=== PATIENT | female | born 1940 | race Caucasian/White ===

== ENCOUNTER → 2019-08-20 08:55 | Outpatient (CLI) | payer MEDICARE, OTHER ==
[~2019-08-20 08:55] MED LIST: ACETAMINOPHEN500 M1 PO; BAYER CHEWABLE81 MG PO; BYSTOLIC5 MG PO; GABAPENTIN100 MG PO; LINZESS290 MCG PO; PLAVIX75 MG PO; ULTRAM50 MG PO
[2019-09-05 11:06] VITALS: BMI 27.5
== END | disposition home or self-care (01) ==
LOC: D.HCCARDIO 08:55
PROVIDERS: ATTEND Internal Medicine Cardiovascular Disease
DX: I25.10 Atherosclerotic heart disease of native coronary artery without angina pectoris (principal); I10 Essential (primary) hypertension; R06.00 Dyspnea, unspecified

== ENCOUNTER 2019-09-05 09:38 | Outpatient (CLI) | payer MEDICARE, OTHER ==
[~2019-09-05] VITALS: Ht 165.1 cm; Wt 75.0 kg
--- NOTE | ~2019-09-05 | HEMODYNAMI ---
PATIENT:GIO AMBRIZ MEDICAL RECORD: [id number] : 42 LOCATION:[facility] ADMISSION DATE: 09/05/19 Generatedon:09/05/201914:11 Patient name: GIO AMBRIZ Patient #: [id number] SN: [id number] : 1940 Date of study: 09/05/2019 Page: Of Hemodynamic Procedure Report Patient Data Patient Demographics Procedure consent was obtained First Name: GIO Gender: Female Last Name: PB : 1940 Patient #: [id number] Age: 79 year(s) Race: SSN: [id number] Additional ID: [id number] Contact details [address]: [address] [place] [address] State: [place] City: [place] Zip code: [address] Admission Admission Data Admission Date: 09/05/2019 Admission Time: 9:38 Arrival Date: 09/05/2019 Arrival Time: 13:00 Admit Source: Other Insurance Payor: Medicare Height (in.): 65 BSA: 1.82 (m2) Height (cm.): 165.1 BMI: 27.51 (kg/m2) Weight (lbs.): 165.35 Weight (kg.): 75 Lab Results Lab Result Date: 09/05/2019 Lab Result Time: 0:00 Biochemistry Name Units Result Min Max BUN mg/dl 14 --(--*-)-- 7 18 Creatinine mg/dl 0.8 --(-*--)-- 0.6 1.3 eGFR ml/min 73.33974 *-(----)-- 90 120 NONAFRICAN CBC Name Units Result Min Max Hemoglobin g/dl 14.3 --(*---)-- 13.5 17.5 Procedure Procedure Types Cath Procedure Diagnostic Procedure LHC LH w/Coronaries Sedation Charges Moderate Sedation up to 15 minutes PCI Procedure Coronary Stent Coronary Stent Initial Procedure Description Procedure Date Procedure Date: 09/05/2019 Procedure Start Time: 13:40 Procedure End Time: 14:04 Procedure Staff Name Function Marvin Nova MD Performing Physician Luz Garcia RT Monitor Paulina Shah RT Scrub Vi Schneider RN Nurse Indication An abnormal nuclear perfusion study Procedure Data Cath Procedure Fluoroscopy Diagnostic fluoroscopy Total fluoroscopy Time: 3.3 time: 3.3 min min Diagnostic fluoroscopy Total fluoroscopy dose: 373 dose: 373 mGy mGy Contrast Material Contrast Material Type Amount (ml) Isovue 300 92 Entry Location Entry Primary Successful Side Size Upsize Upsize Entry Closure Succes sful Closure Location (Fr) 1 (Fr) 2 (Fr) Remarks Device Remarks Femoral Right 5 Fr 6 Fr Exoseal artery Short Estimated blood loss: 10 ml Diagnostic catheters Device Type Used For End Catheter Placement MULTIPACK JL 4.0 5Fr Procedure catheter MULTIPACK 3DRC 5Fr Procedure catheter MULTIPACK Pigtail 5 Fr Ventriculography catheter Procedure Complications No complications Procedure Medications Medication Administration Route Dosage 0.9% NaCl I.V. 100 ml/hr Oxygen etCO2 Nasal cannula 2 l/min Lidocaine 2% added to field 20 Heparin Flush Bag added to field 2 bags (1000units/500ml NS) Versed I.V. 2 mg Fentanyl I.V. 50 mcg Fentanyl I.V. 50 mcg Heparin Bolus I.V. 7500 units Plavix P.O. 600 mg Hemodynamics Rest BSA: 1.82 (m2) HGB: 14.3 (g/dl) O2 Consumption: Estimated: 164.56 (ml/min) O2 Co nsumption indexed: Estimated:90.42 (ml/min/m) Heart Rate: 70 (bpm) Pressure Samples Time Site Value (mmHg) Purpose Heart Use Rate(bpm) 13:43 AO 158/87(95) Snapshot 71 13:48 LV 159/1,10 Snapshot 73 13:48 LV 171/0,9 Snapshot 73 13:48 AO 161/66(108) Pullback 70 13:48 LV 162/0,17 Pullback 70 Gradients Valve Time Site 1 Site 2 Mean SEP/DFP Peak To Heart Use (mmHg) (sec/min) Peak Rate (mmHg) (bpm) Aortic 13:48 LV AO 8 15 1 70 162/0,17 161/66(108) Calculations Valve P-P Mean Valve Index Valve Source Name Gradient Area Flow (cm2) Aortic 1 8 1 8 Snapshots Pre Cath Intra NCS Post Cath Vital Signs Time Heart Resp SPO2 etCO2 NIBP (mmHg) Rhythm Pain Sedation Rate (ipm) (%) (mmHg) Status Level (bpm) 13:27:03 67 13 98 30.1 Measuring NSR 0 (11) 10(A) , No pain 13:27:28 66 13 100 30.9 165/82(116) NSR 0 (11) 10(A) , No pain 13:31:50 67 12 97 31.6 162/78(100) NSR 0 (11) 10(A) , No pain 13:36:14 69 11 98 32.4 154/75(105) NSR 0 (11) 10(A) , No pain 13:40:36 69 15 98 17.3 154/70(113) NSR 0 (11) 9(A) , No pain 13:44:50 71 16 98 11 142/70(94) NSR 0 (11) 9(A) , No pain 13:49:08 69 18 96 25.6 136/66(100) NSR 0 (11) 9(A) , No pain 13:53:24 71 19 96 27.1 138/67(113) NSR 0 (11) 9(A) , No pain 13:57:40 70 18 96 27.8 140/71(114) NSR 0 (11) 9(A) , No pain 14:02:40 73 10 96 21 Measuring NSR 0 (11) 9(A) , No pain 14:02:48 72 12 97 27.1 169/84(125) NSR 0 (11) 10(A) , No pain Medications Time Medication Route Dose Verified Delivered Reason Notes Effectiveness by by 13:26:31 0.9% NaCl I.V. 100 Marvin Vi used for ml/hr Avtar Schneider tree planter 13:26:37 Oxygen etCO2 2 Marvin Vi used for Nasal l/min Avtar Schneider procedure cannula RN 13:26:43 Lidocaine 2% added 20ml Marvin Marvin for local to vial Avtar Nova MD anesthetic field 13:26:47 Heparin Flush added 2 Marvin Marvin used for Bag to bags Avtar Nova MD procedure (1000units/500ml field NS) 13:34:40 Versed I.V. 2 mg Marvin Vi for sedation Avtar Schneider RN 13:34:45 Fentanyl I.V. 50 Marvin Vi for sedation mcg Avtar Schneider RN 13:39:25 Fentanyl I.V. 50 Marvin Vi for sedation mcg Avtar Schneider RN 13:52:21 Heparin Bolus I.V. 7500 Marvin Vi for verif ied units Avtar Schneider anticoagulation with Dr. LINDA Nova 13:53:32 Plavix P.O. 600 Mravin Vi for mg Avtar Schneidre antiplatelet RN therapy Procedure Log Time Note 13:10:29 Vi Schneider RN sent for patient. Start room use. 13:14:48 Diagnostic Cath Status : Elective 13:15:42 Indication : An abnormal nuclear perfusion study 13:16:02 Informed consent obtained and on chart 13:17:02 Arrival Date: 09/05/2019 1:00:00 PM 13:17:09 Insurance Payor : Medicare 13:17:11 Admit Source: Other 13:17:33 Patient Height : 65 inches 13:17:36 Patient Weight : 165.35 lbs 13:18:02 Lab Result : BUN 14 mg/dl 13:18:02 Lab Result : eGFR NONAFRICAN 73.76222 ml/min 13:18:02 Lab Result : Creatinine 0.8 mg/dl 13:18:02 Lab Result : Hemoglobin 14.3 g/dl 13:18:30 2) 60-89 Mildly reduced kidney function, and other findings (as for stage 1) point to kidney disease. 13:19:12 Maximum allowable contrast dose (3.7 X eGFR X 0.75)202 ml. 13:22:26 ACC Patient presents with Stable Angina CCS Anginal Class 2--Slight limitation of ordinary activity. 13:22:40 Time tracking: Regular hours (M-F 7:00 - 5:00) 13:22:44 Plan of Care:Hemodynamics will remain stable., Cardiac rhythm will remain stable., Comfort level will be maintained., Respiratory function will remain adequate., Patient/ family verbilizes understanding of procedure., Procedure tolerated without complication., Recovers from procedure without complications.. 13:22:49 Patient received from Pre/Post Procedure Room to [facility] 2 Alert and oriented. Tansferred to table in Supine position. 13:22:50 Warm blankets applied, and sumit hugger turned on for patient comfort. 13:22:50 Correct patient and procedure confirmed by team. 13:22:51 ECG and BP/O2 sat monitors applied to patient. 13:25:14 Vital chart was started 13:25:16 Baseline sample Acquired. 13:25:19 Rhythm: sinus rhythm 13:25:21 Full Disclosure recording started 13:25:25 H&P Date Dictated: 09/05/2019 Within 30 days and on chart., H&P Addendum completed by physician on day of procedure. (MUST COMPLETE FOR ALL OUTPATIENTS). 13:25:26 Pre-procedure instructions explained to patient. 13:25:26 Pre-op teaching completed and patient verbalized understanding. 13:25:29 Family in patients room. 13:25:31 Patient NPO since Midnight. 13:25:32 Is the patient allergic to Iodine/contrast media? No. 13:25:33 Was the patient premedicated? No 13:25:35 Is patient on blood thinner?No 13:25:36 Patient diabetic? No. 13:25:40 Previous problem with sedation/anesthesia? No ? 13:25:41 Snore? Yes 13:25:42 Sleep apnea? No 13:25:44 Deviated septum? No 13:25:44 Opens mouth fully? Yes 13:25:45 Sticks out tongue? Yes 13:25:46 Airway obstruction? No ? 13:25:49 Dentures? No ? 13:26:29 Patient pain scale 0/10 ?. 13:26:31 0.9% NaCl 100 ml/hr I.V. was administered by Vi Schneider RN; used for procedure; Verbal order read back and verified. 13:26:37 Oxygen 2 l/min etCO2 Nasal cannula was administered by Vi Schneider RN; used for procedure; Verbal order read back and verified. 13:26:43 Lidocaine 2% 20ml vial added to field was administered by Marvin Nova MD; for local anesthetic; Verbal order read back and verified. 13:26:46 IV patent on arrival in right antecubital with 0.9% NaCl at [facility]. 13:26:47 Heparin Flush Bag (1000units/500ml NS) 2 bags added to field was administered by Marvin Nova MD; used for procedure; Verbal order read back and verified. 13:26:49 Lab results completed and on chart. 13:26:53 Risk of Mortality: .2 13::58 Risk of blood transfusion: .1 13:27:02 Risk of LYDIA: 1.1 13:27:06 Right groin area was prepped with chlora-prep and draped in sterile fashion 13:27:07 Alarms reviewed by R. N. 13:27:08 Sharps counted by scrub and verified by R.N. 13:28:04 Physician arrived 13::05 --------ALL STOP TIME OUT------ 13::06 Final Timeout: patient, procedure, and site verified with staff and physician. All members of the team are in agreement. 13:28:08 Right groin site verified by team. 13:28:12 Fire Safety Assessment: A--An alcohol-based skin anteseptic being used preoperatively., C--Open oxygen or nitrous oxide is being used., D--An ESU, laser, or fiber-optic light is being used. 13:28:27 Physical assessment completed. ASA score P 2 - A patient with mild systemic disease as per Marvin Nova MD. 13:31:52 Sedation plan: IV Moderate Sedation Medication:Versed, Fentanyl 13:31:57 Use device set Femoral Dx 13:31:58 ACIST Syringe (53427) opened to sterile field. 13:31:59 Bag Decanter (2002) opened to sterile field. 13:32:00 Medline Cath Pack ([id number]) opened to sterile field. 13:32:02 ACIST Hand Control (40921) opened to sterile field. 13:32:03 ACIST Manifold (83612) opened to sterile field. 13:32:04 DIAGNOSTIC Multipack 5Fr catheter set (JH8998) opened to sterile field. 13:32:06 Tegaderm 4 x 4 (1626W) opened to sterile field. 13:32:09 SHEATH 5FR [place] (OON685) opened to sterile field. 13:32:10 EMERALD Guide Wire (103-986) opened to sterile field. 13:34:40 Versed 2 mg I.V. was administered by Vi Schneider RN; for sedation; Verbal order read back and verified. 13:34:45 Fentanyl 50 mcg I.V. was administered by Vi Schneider RN; for sedation; Verbal order read back and verified. 13:36:57 Zero performed for pressure channel P1 13:36:59 Zero performed for pressure channel P1 13:37:13 Procedure started. 13:39:25 Fentanyl 50 mcg I.V. was administered by Vi Schneider RN; for sedation; Verbal order read back and verified. 13:40:08 Local anesthetic to right femoral artery with Lidocaine 2% by Marvin Nova MD.INITIAL ACCESS ONLY 13:40:18 A 5 Fr sheath was inserted into the Right Femoral artery 13:43:02 A MULTIPACK JL 4.0 5Fr catheter was advanced over the wire and used for Procedure. 13:43:41 LCA angiography performed. 13:44:29 Catheter removed. 13:44:36 A MULTIPACK 3DRC 5Fr catheter was advanced over the wire and used for Procedure. 13:44:39 RCA angiography performed. 13:45:50 ACCDominant side:Left 13:45:53 Catheter removed. 13:46:43 A MULTIPACK Pigtail 5 Fr catheter was advanced over the wire and used for Ventriculography. 13:46:51 LV angiography performed. 13:48:35 EF : 50 % 13:49:05 GUIDE 6FR XBLAD 3.5 catheter ([id number]) opened to sterile field. 13:49:06 INFLATOR Merit BasixCompak (BJ4059) opened to sterile field. 13:49:06 BMW 300cm Magnetic [place] 2 J wire ([id number]) opened to sterile field. 13:49:07 SHEATH 6FR [place] (WQL293) opened to sterile field. 13:49:07 TUBING High Pressure Extension Tubing (Avtar) ([id number]) opened to sterile field. 13:49:12 Catheter removed. 13:49:19 Mortality risk .2%. 13:49:20 Proceeding to intervention. 13:49:29 Sheath upsized to a 6 Fr Short. 13:50:07 Pre PCI Site: [facility] mLAD has 90% stenosis. 13:50:20 6 Fr XBLAD3.5 guide catheter was inserted over the wire 13:50:28 BMW wire advanced. 13:52:21 Heparin Bolus 7500 units I.V. was administered by Vi Schneider RN; for anticoagulation; verified with Dr. Nova Verbal order read back and verified. 13:53:32 Plavix 600 mg P.O. was administered by Vi Schneider RN; for antiplatelet therapy; Verbal order read back and verified. 14:00:03 Place stent Inflation Number: 1 A INTEGRITY RX 3.0 x 22 stent ([id number]) was prepped and advanced across the Prox LAD 90. The stent was deployed at 12 MAYA for 0:20 (min:sec) . 14:00:15 EXOSEAL 6Fr (EX600) opened to sterile field. 14:00:58 Wire removed. 14:00:59 Guide catheter removed. 14:01:11 Sheath removed intact; hemostasis achieved with Exoseal to the Right Femoral artery. 14:01:15 Procedure ended.(Physican Out) 14:01:59 Fluoroscopy time 03.30 minutes. 14:02:04 Fluoroscopy dose: 373 mGy 14:02:04 Flurop Dose total: 373 14:02:10 Dose Area Product 38.9 mGy/cm. 14:02:17 Contrast amount:Isovue 300 92ml. 14:02:19 Maximum allowable dose exceeded? No. 14:02:21 Sharps counted by scrub and verified by R.N. 14:02:32 Post right femoral artery:stable 14:02:35 Post Procedure Pulses reassessed and unchanged 14:02:38 Post-procedure physical assessment completed. ASA score P 2 - A patient with mild systemic disease as per Marvin Nova MD. 14:02:52 Post procedure rhythm: sinus rhythm 14:02:55 Estimated blood loss: 10 ml 14:02:56 Post procedure instruction explained to patient.Patient verbalizes understanding. 14:03:15 Procedure type changed to Cath procedure, Diagnostic procedure, LHC, [facility] w/Coronaries, Sedation Charges, Moderate Sedation up to 15 minutes, PCI procedure, Coronary Stent, Coronary Stent Initial 14:03:22 Procedure and supply charges have been captured, reviewed, submitted and are correct. 14:03:47 Procedure Complication : No complications 14:03:51 Vital chart was stopped 14:03:56 [facility] Findings: MVD- PCI performed (see procedure note) 14:03:58 Operative report dictated upon procedure completion. 14:03:59 See physician's report for complete and final results. 14:04:00 Report given to Pre/Post Procedure Room. 14:04:05 Patient transfered to Pre/Post Procedure Room with Stretcher. 14:04:08 Procedure ended. 14:04:08 Full Disclosure recording stopped 14:04:19 End room use (Document Last) 14:04:37 ACC-PCI Only Patient was given prescriptions, or instructed by Marvin Nova MD to start/continue the following medications upon discharge: Plavix 14:08:10 ACT drawn and resulted at 400 seconds. (normal therapeutic range 180-240 seconds). 14:08:32 FEMSTOP Gold ([id number]) opened to sterile field. 14:10:18 Femstop placed over the right femoral artery at 120 mmHg. Hemostasis achieved. Intervention Summary Intervention Notes Time ActionType Lesion and Equipment Action# Pressure Duration Attributes Used 14:00:03 Place stent Prox LAD INTEGRITY RX 1 12 00:20 3.0 x 22 stent ([id number]) Device Usage Item Name Manufacture Quantity Catalog Hospital Part Current Minimal Lot# / Number Charge Number Stock Stock Serial# Code ACIST Acist 1 62027 316213 513366 374693 20 Syringe Medical (01715) Systems Inc Bag Decanter Microtek 1 2001S 707347 93813 735591 5 (2001S) Medical Inc. Medline Cath Medline 1 [id number] 532508 42471 014069 5 Pack ([id number]) ACIST Hand Acist 1 39913 458687 924079 594716 5 Control Medical (85910) Systems Inc ACIST Acist 1 62940 925749 502011 530037 5 Manifold Medical (07254) Systems Inc DIAGNOSTIC Cardinal 1 TM8487 235230 20981 345813 30 Multipack Health 5Fr catheter set (QE1814) Tegaderm 4 x 3M 1 1626W 623684 572145 738925 5 4 (1626W) SHEATH 5FR Terumo 1 NIY722 488068 191283 933228 5 [place] (RSK204) EMERALD Cardinal 1 502-455 708320 124344 927550 5 Guide Wire Health (502455) MULTIPACK JL Cardinal 1 133871 5 4.0 5Fr Health catheter MULTIPACK Cardinal 1 947376 5 3DRC 5Fr Health catheter MULTIPACK Cardinal 1 829810 5 Pigtail 5 Fr Health catheter GUIDE 6FR Cardinal 1 [id number] 746091 459710 024501 10 XBLAD 3.5 Health catheter (08530423) INFLATOR Merit 1 RI3591 302677 319760 568689 15 Merit Medical BasixCompak (PS6393) BMW 300cm Adair 1 [id number] 728989 407296 401005 5 Magnetic [place] 2 Vascular J wire ([id number]) SHEATH 6FR Terumo 1 PNT582 669539 071265 898146 40 [place] (OYC412) TUBING High Merit 1 [id number] 152770 39933 582094 10 Pressure Medical Extension Tubing (Avtar) (JK4586I) INTEGRITY RX Medtronic 1 [id number] 752716 806531 392630 5 [id number] 3.0 x 22 stent ([id number]) EXOSEAL 6Fr Cardinal 1 EX600 434538 895952 928580 10 (EX600) Health FEMSTOP Gold [facility] 1 O50180 948313 351746 647467 5 ([id number]) Signature Audit [place] Stage Time Signature Unsigned Intra-Procedure 09/05/2019 Luz Garcia 2:06:03 PM RT(R) Intra-Procedure 09/05/2019 Vi Schneider 2:06:38 PM RN Intra-Procedure 09/05/2019 Marvin Nova MD 2:11:06 PM Signatures Performing Physician : Signature : Marvin Nova MD Date : Time : Monitor : Luz Garcia Signature : RT Date : Time : Nurse : Vi Schneider RN Signature : Date : Time : [place] [id number] [place] [address]
[2019-09-05] MEDS ORDERED: GABAPENTIN100 MG PO (10:42)
[2019-09-05] MEDS ORDERED: ACETAMINOPHEN500 M1 PO (10:42)
[2019-09-05] MEDS ORDERED: BYSTOLIC5 MG PO (10:42)
[2019-09-05] MEDS ORDERED: LINZESS290 MCG PO (10:43)
[2019-09-05] MEDS ORDERED: ULTRAM50 MG PO (10:43)
[2019-09-05] MEDS ORDERED: BAYER CHEWABLE81 MG PO (10:43)
[2019-09-05 11:06] VITALS: BP 155/68; Ht 165.1 cm; Wt 75.0 kg
[2019-09-05 11:11] LABS: BASOPHILS 0.3 % (0-2); EOSINOPHILS 1.5 % (0-7); HEMATOCRIT 43.2 % (36.0-48.0); HEMOGLOBIN 14.3 g/dL (12-16); IMMATURE GRANULOCYTES 0.2 % (0-5); LYMPHOCYTES 35.6 % (15-50); MCH 33.4 pg (26.0-34.0); MCHC 33.1 g/dL (31.0-37.0); MCV 100.9 fL (80.0-100.0); MEAN PLATELET VOLUME 9.2 fL (7.4-10.4); MONOCYTES 8.6 % (2-11); NEUTROPHILS 53.8 % (40-80); PLATELET COUNT 262 10x3/uL (130-400); RBC 4.28 10x6/uL (4.00-5.40); WBC 6.6 10x3/uL (4.8-10.8)
[2019-09-05 11:21] LABS: ANION GAP 9.6 mmol/L (8-16); CALCIUM 9.2 mg/dL (8.5-10.1); CREATININE - SERUM 0.8 mg/dL (0.6-1.3); POTASSIUM - SERUM 4.6 mmol/L (3.5-5.1)
[2019-09-05 11:25] LABS: CHOL - HDL RATIO 3.8 ratio (2.3-4.1); LDL-HDL RATIO 2.5 ratio (1.5-3.5)
--- NOTE | 2019-09-05 14:25 | NUR ---
PT RECEIVED VIA STRETCHER FROM BAR STEWARD FOR RECOVERY. PT AWAKE BUT DROWSY. IV PATENT INFUSING VIA ORDERS. CARDIAC MONITORS PLACED ON PT. HR NSR RATE 70, BP 149/77, RR 11, O2 SAT 94 ON ROOM AIR. FEMOSTOP TO R GROIN, NO BLEEDING OR SWELLING NOTED. LEG PINK AND WARM, PEDAL PULSES PALPABLE. PT INSRUCTED TO KEEP HEAD ON PILLOW AND LEG STRAIGHT ON BED, SHE VERBALIZED UNDERSTANDING. C/O L SHOULDER PAIN FROM B/P CUFF, IT WAS MOVED TO LEG PER BAR STEWARD STAFF. CALL LIGHT IN REACH. PT DENIES CHEST PAIN OR NEEDS.
[2019-09-05] MEDS ORDERED: PLAVIX75 MG PO (14:32)
--- NOTE | 2019-09-05 15:19 | NUR ---
PT ALERT, DENIES ANY C/O CHEST PAIN, FEMSTOP INTACT WITH PRESSURE AT 100, NO BLEEDING OR HEMATOMA NOTED. PEDAL PULSES PALPABLE. HOB IS FLAT, FAMILY AT BEDSIDE. VSS.
--- NOTE | 2019-09-05 15:26 | NUR ---
PT IS ALERT, DENIES ANY C/O. RESP WITH EASE ON ROOM AIR. FEMSTOP CDI, PEDAL PULSES PALPABLE. VSS.
--- NOTE | 2019-09-05 15:46 | NUR ---
FEMSTOP PRESSURE WEANED BY 20, NO BLEEDING OR HEMATOMA NOTED AT SITE. PEDAL PULSES PALPABLE, HOB IS FLAT, DAUGHTER AT BEDSIDE, VSS.
--- NOTE | 2019-09-05 16:17 | NUR ---
FEMSTOP PRESSURE WEANED BY 20 WITH NO BLEEDING NOTED. PULSES PALPABLE. PT ALERT AND DENIES ANY C/O. DAUGHTER AT BEDSIDE.
--- NOTE | 2019-09-05 16:43 | NUR ---
1635 FEMSTOP PRESSURE WEANED BY 20 WITH NO BLEEDING NOTED.
--- NOTE | 2019-09-05 17:11 | NUR ---
1655 ALL PRESSURE WEANED FROM FEMSTOP AND 4X4'S TEGADERM DRESSING PLACED TO SITE. AREA IS SOFT AND NONTENDER. PEDAL PULSES PALPABLE. PT IS ALERT AND DENIES ANY C/O.
--- NOTE | 2019-09-05 17:34 | NUR ---
1730 HEMATOMA NOTED TO RIGHT GROIN, DISTAL TO CATH SITE. MANUAL PRESSURE HELD AT SITE X 5 MINUTES, SHIRA PRATT, RT HERE AND FEMSTOP APPLIED TO SITE, FEMSTOP PRESSURE AT 165. PEDAL PULSE PALPABLE. DR GARCIA NOTIFIED AND ORDER TO ADMIT FOR OBSERVATION.
--- NOTE | 2019-09-05 17:56 | NUR ---
FEMSTOP INTACT, NO BLEEDING NOTED. PT C/O BACK PAIN WITH LAYING FLAT, NORCO 10 PO PER ORDERS. PEDAL PULSES PALPABLE, PT DENIES ANY C/O CHEST PAINS, NSR, RATE 68. BP IS 143/68. HOB IS FLAT.
--- NOTE | 2019-09-05 18:15 | NUR ---
PT ALERT, RAJ APPLESAUCE AND PO FLUIDS. FEMSTOP INTACT WITH NO BLEEDING NOTED. PEDAL PULSES PALPABLE.
--- NOTE | 2019-09-05 18:40 | NUR ---
FEMSTOP PRESSURE WEANED BY 20, NO BLEEDING OR HEMATOMA NOTED. PEDAL PULSES PALPABLE.
--- NOTE | 2019-09-05 18:47 | NUR ---
PT ASSISTED ONTO BEDPAN, VOIDED APPROX 200 CC CLEAR YELLOW URINE. NO BLEEDING AT CATH SITE, FEMSTOP INTACT. FRUIT TRAY SERVED. PT ALERT AND DENIES ANY C/O. REPORT CALLED TO LINDA HERRERA ON MED 2, PT TO BE ADMITTED TO ROOM 2111 FOR OVERNIGHT OBSERVATION.
--- NOTE | 2019-09-05 19:00 | NUR ---
PATIENT ARRIVED TO FLOOR VIA STRETCHER. PATIENT IS ALERT AND ORIENTED. FEMSTOP IN PLACE. VISBLE BRUISING, RIGHT GROIN SOFT. NO S/S OF DISTRESS. NO C/O PAIN. ADMISSION COMPLETE. DAUGHTER AT BEDSIDE. CALL LIGHT WITHIN REACH. WILL CPOC.
--- NOTE | 2019-09-05 19:22 | NUR ---
190 FEMSTOP PRESSURE WEANED BY 20, NO BLEEDING NOTED. PEDAL PULSES PALPABLE. PT IS ALERT, EATING FRUIT TRAY FOR DINNER. 1909 PT TRANSFERRED TO 2111 VIA STRETCHER. REPORT AND CARE TO LINDA HERRERA. PT HAS ALL PERSONAL BELONGINGS AND STENT CARD.
--- NOTE | 2019-09-05 23:00 | NUR ---
FEMSTOP REMOVED. RIGHT GROIN SOFT.
[2019-09-06] VITALS: BP 115/67
[2019-09-06 04:00] VITALS: BP 124/67
[2019-09-06 08:30] VITALS: BP 144/52
[2019-09-06 12:30] VITALS: BP 133/60
--- NOTE | 2019-09-06 14:09 | NUR ---
CALLED TO MAKE SURE PT WAS OK TO DC AT THIS TIME. HE SAID THAT LONG THE BLEEDING WAS CONTROLED SHE WAS OK TO DC.
--- NOTE | 2019-09-06 15:21 | NUR ---
DC PAPERWORK GONE OVER AND SIGNED WITH PT. ALL QUESTIONS ANSWERED. TELEMETRY REMOVED AND RETURNED TO GED TEACHER. PIV REMOVED, CATH TIP FULLY INTACT. ALL VALUBLES REMOVED FROM ROOM. PT ESCORTED TO FRONT ENTRANCE WITH FAMILY PRESENT.
== END 2019-09-06 15:23 | disposition home or self-care (01) ==
LOC: D.CATH 09:38 → D.M2 19:10 → D.SDCHOLD 09-06 11:59 → D.M2 09-06 13:58 → D.CATH 09-06 15:23
PROVIDERS: ATTEND Internal Medicine Cardiovascular Disease
DX: R94.30 Abnormal result of cardiovascular function study, unspecified (principal); R06.02 Shortness of breath; I25.110 Atherosclerotic heart disease of native coronary artery with unstable angina pectoris

== ENCOUNTER → 2020-05-01 08:45 | Outpatient (CLI) | payer MEDICARE, OTHER ==
[2019-09-05 11:06] VITALS: BMI 27.5
[2020-05-01 19:35] LABS: CHOL - HDL RATIO 3.6 ratio (2.3-4.1); LDL-HDL RATIO 2.1 ratio (1.5-3.5)
== END | disposition home or self-care (01) ==
LOC: D.LABREF 08:45
PROVIDERS: ATTEND Internal Medicine Cardiovascular Disease
DX: E78.5 Hyperlipidemia, unspecified (principal)